=== PATIENT | female | born 1965 | race Caucasian/White ===

== ENCOUNTER 2016-10-17 22:49 | Emergency (ER) | payer BC ==
[~2016-10-17] VITALS: Ht 157.5 cm; Wt 68.5 kg
[~2016-10-17 22:49] MED LIST: BACL10TA PO; NAPR-260 PO
[2016-10-17 22:52] VITALS: Ht 157.5 cm; Wt 68.5 kg
[2016-10-18] MEDS ORDERED: ONDANSETRON (ODT) 4 MG TAB ODT STA (00:57)
[2016-10-18] MEDS ORDERED: KETOROLAC 30 MG INJ IM STA (00:57)
--- NOTE | 2016-10-18 01:01 | ERD ---
ER Documentation Chief Complaint Date/Time DATE: 10/18/16 TIME: 01:00 Chief Complaint numbness of both hands x 3 days, denies chest pain HPI 51-year-old otherwise healthy female presents to the emergency department with complaints of a 3 day history of intermittent pain and numbness in bilateral upper extremities. Patient states that she has experienced an 8 out of 10 numbness type pain when lying down on her side compressing her arm. She states that soon after lying down on her right side she develops numbness and tingling throughout her right upper extremity. She states the same occurs in her left upper extremity when laying on her left side she states she attempted to treat her discomfort with ibuprofen last night with only mild relief. She denies any history of arthritis, diabetes, trauma, fall, spinal injury or surgery. She denies any chest pain, shortness of breath, fever, redness or swelling. She states she has not been sick recently. ROS All systems reviewed and are negative except as per history of present illness. Medications Home Meds Active Scripts Hydrocodone/Acetaminophen ([place] 5-325 Tablet) 1 Each Tablet, 1 TAB PO Q6H Y for PAIN, #7 TAB Prov:ADALID MITCHELL PA-C 10/18/16 Naproxen* (Naprosyn*) 500 Mg Tablet, 500 MG PO BID Y for PAIN AND/OR INFLAMMATION, #30 TAB Prov:ADALID MITCHELL PA-C 10/18/16 Baclofen* (Baclofen*) 10 Mg Tablet, 10 MG PO BID for 5 Days, TAB Prov:MANAGUELOD,TITO P LANDSCAPE SPECIALIST 06/29/16 Naproxen* (Naprosyn*) 500 Mg Tablet, 500 MG PO BID Y for PAIN AND/OR INFLAMMATION, #30 TAB Prov:MANAGUELOD,TITO P LANDSCAPE SPECIALIST 06/29/16 Allergies Allergies: Coded Allergies: No Known Drug Allergy (Verified Allergy, Mild, 08/27/14) PMhx/Soc History of Surgery: Yes (c section 2002) Anesthesia Reaction: No Hx Neurological Disorder: No Hx Respiratory Disorders: No Hx Cardiac Disorders: No Hx Psychiatric Problems: No Hx Miscellaneous Medical Probl: No Hx Alcohol Use: No Hx Substance Use: No Hx Tobacco Use: No Physical Exam Vitals Vital Signs Date Time Temp Pulse Resp B/P Pulse Ox O2 Delivery O2 Flow Rate FiO2 10/17/16 22:52 96.3 59 20 12/58 100 Physical Exam Const: Well-developed, well-nourished, nontoxic appearing, in no acute distress Head: Atraumatic Eyes: Normal Conjunctiva ENT: Normal External Ears, Nose and Mouth. Neck: Full range of motion..~ No meningismus. Resp: Clear to auscultation bilaterally Cardio: Regular rate and rhythm, no murmurs Abd: Soft, non tender, non distended. Normal bowel sounds Skin: No petechiae or rashes Back: Mild tenderness to palpation near midline cervical spine. Tense paraspinous muscles palpated along C-spine. No tenderness to palpation of shoulder joint. Full range of motion at shoulder joint including flexion, extension, and abduction. Negative empty can test. No tenderness to palpation near elbow joint, forearm, wrist or fingers. 5 out of 5 strength equal and bilateral throughout upper extremity. Bicep and tricep DTRs intact. +2 point discrimination along radial and ulnar aspects of distal. Radial pulses equal and bilateral. No evidence of effusion, ecchymosis, redness. Skin warm to touch. no midline or flank tenderness Ext: No cyanosis, or edema Neur: Awake and alert Psych: Normal Mood and Affect Results 24 hrs Current Medications Medications (Trade) Dose Ordered Sig/Lamonte Route PRN Reason Start Time Stop Time Status Last Admin Dose Admin Ketorolac Tromethamine (Toradol) 30 mg ONCE STAT IM 10/18/16 00:57 10/18/16 01:00 DC 10/18/16 01:46 Ondansetron HCl (Zofran Odt) 4 mg ONCE STAT ODT 10/18/16 00:57 10/18/16 01:00 DC 10/18/16 01:43 Procedures/MDM Otherwise healthy 51-year-old female presents to the emergency department for 3 day history of intermittent bilateral arm numbness. EKG: Rate/Rhythm: Normal Sinus Rhythm QRS, ST, T-waves: No changes consistent w/ acute ischemia Impression: No evidence of ischemia or arrhythmia PROCEDURE: XR Cervical Spine. CLINICAL INDICATION: Pain and numbness. TECHNIQUE: AP, lateral and odontoid views of the cervical spine were performed. COMPARISON: There are no similar studies submitted for comparison. FINDINGS: There is straightening of the normal cervical lordosis which may be positional or related to degenerative changes. Some facet arthritic changes are present. Vertebral body stature and alignment maintained. There is no evidence of fracture or subluxation. The dens is intact. There is no prevertebral soft tissue swelling. IMPRESSION: No fracture or subluxation. RPTAT: HIKT .Jesus Anaya MD, MD Date Time Electronically viewed and signed by .Jesus Anaya MD, on 10/18/2016 02:06 .T/ CC: ADALID MITCHELL PA-C X-ray C spine 3V Interpreted by me: Bones: No fracture Joints: No dislocation Foreign body: None Patient history and physical exam consistent with radiculopathy due to cervical spine arthritis. At this time I have low suspicion for acute coronary syndrome , myocardial ischemia, cardiac dysrhythmia, spinal fracture, meningitis, sepsis , septic joint, paraspinal abscess, thoracic outlet syndrome, shoulder dislocation or fracture. Patient provided with Naprosyn as well as short course of [place]. I discussed the importance of following up with an critical care nurse specialist if the problem persists or worsens. Based on patient's history of present illness and physical examination the decision was made to discharge. The patient was re-evaluated after ED treatment and stabilizing measures, and symptoms have improved. There is no evidence of life threatening injuries or illnesses at this time. On re-examination, patient resting in no distress, stable vital signs, reports feeling better and safe for discharge with outpatient follow up with PMD in 1-2 days. Patient given return precautions. ADALID MITCHELL PA-C Oct 18, 2016 01:01
[2016-10-18] MEDS ORDERED: HYDR-906 PO (02:01)
[2016-10-18] MEDS ORDERED: NAPR-260 PO (02:01)
--- NOTE | 2016-10-18 02:07 | RADRPT ---
PROCEDURE: XR Cervical Spine. CLINICAL INDICATION: Pain and numbness. TECHNIQUE: AP, lateral and odontoid views of the cervical spine were performed. COMPARISON: There are no similar studies submitted for comparison. FINDINGS: There is straightening of the normal cervical lordosis which may be positional or related to degener ative changes. Some facet arthritic changes are present. Vertebral body stature and alignment main tained. There is no evidence of fracture or subluxation. The dens is intact. There is no preverteb ral soft tissue swelling. IMPRESSION: No fracture or subluxation. RPTAT: HIKT .Jesus Anaya MD, MD Date Time Electronically viewed and signed by .Jesus Anaya MD, MD on 10/18/2016 02:06 .T/
[2016-10-18 02:19] VITALS: BP 110/56; PULSE 68; RESP 18; TEMP 98
== END 2016-10-18 02:22 | disposition home or self-care (01) ==
LOC: FTE 22:49
DX: M47.22 Other spondylosis with radiculopathy, cervical region (principal); M79.642 Pain in left hand
CPT/HCPCS: 72040; 93005; 96372; J1885; Z7502; Z7610

== ENCOUNTER 2016-11-19 14:56 | Emergency (ER) | payer BC ==
[~2016-11-19] VITALS: Ht 157.5 cm; Wt 66.3 kg
[~2016-11-19 14:56] MED LIST changes: +HYDR-906 PO
[2016-11-19 14:59] VITALS: Ht 157.5 cm; Wt 66.3 kg
--- NOTE | 2016-11-19 16:47 | EN ---
Date/Time of Note Date/Time of Note DATE: 11/19/16 TIME: 16:46 ER Progress Note 51-year-old female presents to the ED complaining of headache, dizziness, numbness and tingling, nausea, abdominal pain that started yesterday. Denies any vomiting, cough, rhinorrhea, fever, diarrhea. Patient was initially assessed here in [facility] however will be sent to ED2 for further evaluation and treatment. WES BROTHERS PA-C Nov 19, 2016 16:47
[2016-11-19] MEDS ORDERED: ONDANSETRON 4 MG INJ IV STA (17:35)
[2016-11-19] MEDS ORDERED: KETOROLAC 15 MG INJ IV STA (17:35)
[2016-11-19 17:59] LABS: URINE BLOOD (Dip) POC Negative (NEGATIVE)
[2016-11-19] MEDS ORDERED: MECLIZINE 12.5 MG TAB PO ONE (18:00)
[2016-11-19] MEDS ORDERED: SOD CHLORIDE 0.9% 1,000 ML IV ONE (18:00)
[2016-11-19] MEDS ORDERED: DIPHENHYDRAMINE 50 MG INJ IV ONE (20:00)
[2016-11-19] MEDS ORDERED: IBUP800T25 PO (21:14)
[2016-11-19] MEDS ORDERED: DIAZ-90 PO (21:15)
[2016-11-19 21:29] VITALS: BP 126/66; PULSE 56; RESP 20; TEMP 97.7
--- NOTE | 2016-12-12 17:45 | ERD ---
ER Documentation Chief Complaint Date/Time DATE: 12/12/16 TIME: 17:38 Chief Complaint FLU LIKE SYMPTOMS X 2 DAYS, NAUSEA/VOMITING. HPI Pleasant 51-year-old female presented to the emergency department today with fever, headache, runny nose, body aches symptoms started 2 days ago. Patient has not tried any [id number] cold and flu medication reports that headache is her worst symptom. Patient has had headaches in the past usually relieved with Motrin. Patient states Motrin is not effective for this headache. ROS All systems reviewed and are negative except as per history of present illness. Medications Home Meds Active Scripts Diazepam* (Valium*) 5 Mg Tablet, 5 MG PO Q12, #10 TAB Prov:BREANNA,YANET 11/19/16 Ibuprofen* (Motrin*) 800 Mg Tab, 800 MG PO Q8, #30 TAB Prov:BREANNA,YANET 11/19/16 Hydrocodone/Acetaminophen ([place] 5-325 Tablet) 1 Each Tablet, 1 TAB PO Q6H Y for PAIN, #7 TAB Prov:ADALID MITCHELL PA-C 10/18/16 Naproxen* (Naprosyn*) 500 Mg Tablet, 500 MG PO BID Y for PAIN AND/OR INFLAMMATION, #30 TAB Prov:ADALID MITCHELL PA-C 10/18/16 Baclofen* (Baclofen*) 10 Mg Tablet, 10 MG PO BID for 5 Days, TAB Prov:MANAGUELOD,TITO P MICA PLATE LAYER 06/29/16 Naproxen* (Naprosyn*) 500 Mg Tablet, 500 MG PO BID Y for PAIN AND/OR INFLAMMATION, #30 TAB Prov:MANAGSALOMÓNOD,TITO P MICA PLATE LAYER 06/29/16 Allergies Allergies: Coded Allergies: No Known Drug Allergy (Verified Allergy, Mild, 08/27/14) PMhx/Soc Medical and Surgical Hx: pt denies Medical Hx History of Surgery: Yes (c section 2002) Anesthesia Reaction: No Hx Neurological Disorder: No Hx Respiratory Disorders: No Hx Cardiac Disorders: No Hx Psychiatric Problems: No Hx Miscellaneous Medical Probl: No Hx Alcohol Use: No Hx Substance Use: No Hx Tobacco Use: No Physical Exam Vitals Vital signs stable, afebrile, triage note reviewed. Physical Exam Const: No acute distress Head: Atraumatic Eyes: Normal Conjunctiva, no pallor or jaundice, positive EOMI, PERRLA ENT: Tympanic membranes translucent nasal mucosa edematous +3, turbinates moist without bleeding points, nasal septum midline. No maxillary or frontal sinus tenderness, pharynx moist, uvula midline rises and falls with pronation. Neck: Full range of motion..~Nontender over bony prominence, palpable trapezial tenderness Resp: Clear to auscultation bilaterally Cardio: Regular rate and rhythm, no murmurs Abd: Soft, non tender, non distended. Normal bowel sounds Skin: No petechiae or rashes Back: No midline or flank tenderness Ext: No cyanosis, or edema Neur: Awake and alert Psych: Normal Mood and Affect Results 24 hrs Laboratory Tests Test 11/19/16 18:01 Bedside Urine Blood Negative Bedside Urine Glucose (UA) Negative Bedside Urine Ketones (LAB) Negative Bedside Urine Leukocyte Esterase (L 1+ Bedside Urine Nitrite (LAB) Negative Bedside Urine Protein (LAB) Negative Bedside Urine pH (LAB) 6.0 Current Medications Medications (Trade) Dose Ordered Sig/Lamonte Route PRN Reason Start Time Stop Time Status Last Admin Dose Admin Sodium Chloride (NS) 1,000 ml @ 1,000 mls/hr Q1H ONCE IV 11/19/16 18:00 11/19/16 18:59 DC 11/19/16 18:03 Ketorolac Tromethamine (Toradol) 15 mg ONCE STAT IV 11/19/16 17:35 11/19/16 17:38 DC 11/19/16 18:02 Ondansetron HCl (Zofran Inj) 4 mg ONCE STAT IV 11/19/16 17:35 11/19/16 17:38 DC 11/19/16 18:02 Meclizine HCl (Antivert) 25 mg ONCE ONCE PO 11/19/16 18:00 11/19/16 18:01 DC 11/19/16 18:02 Diphenhydramine HCl (Benadryl) 25 mg ONCE ONCE IV 11/19/16 20:00 11/19/16 20:01 DC 11/19/16 19:52 Procedures/MDM Pleasant 51-year-old female presents to the emergency room with flulike symptoms , and headache. History of migraines. Neurologically intact. I feel patient will benefit from outpatient therapy and follow-up with primary care physician. I feel the patient is stable for discharge at this time and will benefit from Valium and Motrin as needed headache symptoms I have discussed results, examination findings, the treatment plan with the patient and family present prior to discharge. Indications for emergent reevaluation, side effects of medication were also discussed. All questions were answered. Patient verbalizes understanding and agrees with plan of care. Departure Diagnosis: Primary Impression: Stress response Additional Impression: Headache Headache chronicity pattern: unspecified pattern Intractability: not intractable Condition: Good Patient Instructions: Self-Care for Headaches Additional Instructions: Thank you for for coming to [facility] for your care today. Please ask your nurse or provider if you have questions about your care today and do not leave until all your questions have been answered. Please use any medications given as directed and follow-up with your doctor (or the doctor you were referred to) in the next 2-3 days. If you do not have a primary care doctor you may follow up at the [facility] (listed below). You may also use motrin and tylenol as needed for fever and/or pain unless instructed otherwise by your provider or nurse. Indications for more urgent follow-up have been discussed, but you may return to the Emergency Department at ANY time for any worrisome or worsening symptoms. If you have abdominal pain, please know that no test or exam you received is perfect and you should follow up within 8 hours for continued pain. If you had any imaging studies today, such as an X-Ray or CT Scan, these studies will be reviewed later by a radiologist. You will be called if there are important findings that were not identified today, so make sure the contact information you provided at registration is correct. If you received any narcotic pain control medicine today, such as Vicodin, Morphine or Dilaudid, your coordination and judgment may be affected for a number of hours. Please do not drive or operate heavy machinery, and you may want someone to assist you at home. If you were given a prescription for narcotic medication, be aware that it is very addictive- use sparingly and only if necessary. YANET CARLOS Dec 12, 2016 17:44
== END 2016-11-19 21:30 | disposition home or self-care (01) ==
LOC: FTE 14:56
DX: F43.0 Acute stress reaction (principal); R11.2 Nausea with vomiting, unspecified
CPT/HCPCS: 81003; 96374; 96375; J1200; J1885; J2405; J7030; Z7502; Z7610

== ENCOUNTER 2017-03-02 12:49 | Emergency (ER) | payer BC ==
[~2017-03-02] VITALS: Ht 152.4 cm; Wt 67.0 kg
[~2017-03-02 12:49] MED LIST changes: +DIAZ-90 PO; +IBUP800T25 PO
[2017-03-02 12:55] VITALS: Ht 152.4 cm; Wt 67.0 kg
[2017-03-02] MEDS ORDERED: IBUPROFEN 600 MG TAB PO ONE (14:30)
[2017-03-02 15:03] LABS: ADD SCAN DIFF NO
[2017-03-02 15:07] LABS: BASOPHILS % 0.4 % (0.0-2.0); EOSINOPHILS # 0.2 10^3/ul (0.0-0.5); EOSINOPHILS % 3.5 % (0.0-7.0); HEMATOCRIT 39.8 % (37.0-47.0); LYMPHOCYTES % 35.8 % (15.0-51.0); MEAN CORPUSCULAR HEMOGLOBIN 29.6 pg (29.0-33.0); MEAN CORPUSCULAR HGB CONC 32.7 g/dl (32.0-37.0); MEAN CORPUSCULAR VOLUME 90.7 fl (82.0-101.0); MEAN PLATELET VOLUME 10.4 fl (7.4-10.4); MONOCYTE # 0.3 10^3/ul (0.3-0.9); MONOCYTES % 5.8 % (0.0-11.0); NEUTROPHILS % 54.3 % (39.0-77.0); PLATELET COUNT 200 10^3/UL (140-415); RED BLOOD COUNT 4.39 10^6/ul (4.20-5.40); RED CELL DISTRIBUTION WIDTH 13.2 % (11.5-14.5); WHITE BLOOD COUNT 5.5 10^3/ul (4.8-10.8)
[2017-03-02 15:27] LABS: ALBUMIN 4.4 g/dl (3.3-4.9); ALBUMIN/GLOBULIN RATIO 1.62; BILIRUBIN,INDIRECT 0.2 mg/dl (0-1.1); BILIRUBIN,TOTAL 0.2 mg/dl (0.2-1.3); CREATININE 0.58 mg/dl (0.44-1.00); POTASSIUM 4.3 mmol/L (3.5-5.1); TOTAL PROTEIN 7.1 g/dl (6.1-8.1)
--- NOTE | 2017-03-02 15:38 | RADRPT ---
PROCEDURE: XR cervical spine CLINICAL INDICATION: Neck pain TECHNIQUE: 5 views of the cervical spine including AP, lateral, odontoid and oblique views were ob tained COMPARISON: 10/18/2016 FINDINGS: There is straightening of the lordosis of the cervical spine without malalignment seen. Vertebral b odies are maintained in height. No fracture is seen. There is minimal anterior spondylosis at C6-7 and mild disk space narrowing is seen at C5-6 with uncovertebral osteophytes at this level. IMPRESSION: Mild lower cervical spondylosis. Straightening of the cervical lordosis. RPTAT: VV .Stephan Coats MD, Date Time Electronically viewed and signed by .Stephan Coats MD, on 03/02/2017 15:37 .O/
[2017-03-02] MEDS ORDERED: IBUP-1542 PO (15:48)
[2017-03-02] MEDS ORDERED: TRAM50TA2 PO (15:48)
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
--- NOTE | 2017-03-02 16:45 | RADRPT ---
PROCEDURE: XR Right Foot CLINICAL INDICATION: Trauma TECHNIQUE: AP, oblique, and lateral radiographs were submitted. COMPARISON: None FINDINGS: Osseous structures: appear well mineralized and intact with no fracture or destructive process iden tified. Joint spaces: are well maintained, with no significant spurring, erosion or joint effusion evident. Soft tissues: appear unremarkable. IMPRESSION: Unremarkable right foot. Physician Lisy Date Time Electronically viewed and signed by Blank Valente Physician on 03/02/2017 16:45 /
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
== END 2017-03-02 17:12 | disposition home or self-care (01) ==
LOC: FTE 12:49
DX: T73.3XXA Exhaustion due to excessive exertion, initial encounter (principal)
CPT/HCPCS: 72050; 73610; 73630; 80053; 85025; Z7610; 36415

== ENCOUNTER 2017-09-01 14:08 | Emergency (ER) | payer BC ==
[~2017-09-01] VITALS: Ht 157.5 cm; Wt 66.2 kg
[~2017-09-01 14:08] MED LIST changes: +IBUP-1542 PO; +TRAM50TA2 PO
[2017-09-01 14:26] VITALS: Ht 157.5 cm; Wt 66.2 kg
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
[2017-09-01] MEDS ORDERED: RANI150T9 PO (17:41)
== END 2017-09-01 18:00 | disposition home or self-care (01) ==
LOC: FTE 14:08
DX: R07.89 Other chest pain (principal)
CPT/HCPCS: 93005; Z7502

== ENCOUNTER 2018-05-19 20:12 | Emergency (ER) | END 2018-05-20 00:02 | disposition home or self-care (01) ==

== ENCOUNTER 2018-09-01 01:10 | Emergency (ER) | END 2018-09-01 01:25 | disposition home or self-care (01) ==

== ENCOUNTER 2019-04-11 21:45 | Emergency (ER) | payer BC ==
[~2019-04-11] VITALS: Ht 157.5 cm; Wt 68.8 kg
[~2019-04-11 21:45] MED LIST changes: +AZIT250T PO; +BENZ200C68 PO; +D-ME473S2 PO; -DIAZ-90 PO; +DIAZ5TAB PO; -HYDR-906 PO; -IBUP800T25 PO; -NAPR-260 PO; +NAPR-985 PO
[2019-04-11 21:49] VITALS: Ht 157.5 cm; Wt 68.8 kg
[2019-04-12] MEDS ORDERED: HYDROCODONE/APAP (10/325) TAB PO ONE
[2019-04-12] MEDS ORDERED: DEXAMETHASONE 10 MG/ML 1 ML INJ IM ONE
[2019-04-12] MEDS ORDERED: HYDR-3980 PO (00:44)
[2019-04-12] MEDS ORDERED: PRED20TA PO (00:44)
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
[2019-04-12 01:04] VITALS: BP 117/58; PULSE 62; RESP 16
== END 2019-04-12 01:06 | disposition home or self-care (01) ==
LOC: FTE 21:45
DX: G44.001 Cluster headache syndrome, unspecified, intractable (principal)
CPT/HCPCS: 96372; J1100; Z7502; Z7610